=== PATIENT | male | born 1955 | race Caucasian/White ===

== ENCOUNTER 2018-09-25 15:17 | Emergency (ER) | payer OTHER ==
[2018-09-25] MEDS ORDERED: Ketorolac 60 MG/2 ML SDV IM ONE (15:25)
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
== END 2018-09-25 16:32 | disposition home or self-care (01) ==
LOC: MW.ED 15:17
DX: S16.1XXA Strain of muscle, fascia and tendon at neck level, initial encounter (principal); S39.012A Strain of muscle, fascia and tendon of lower back, initial encounter; Z79.82 Long term (current) use of aspirin; I10 Essential (primary) hypertension; V43.52XA Car driver injured in collision with other type car in traffic accident, initial encounter
CPT/HCPCS: 71045; 72100; 72125; 96372; 99284; J1885